=== PATIENT | male | born 1960 | race African-American/Black ===

== ENCOUNTER 2018-06-18 10:48 | Emergency (ER) | payer BC ==
[2018-06-18 10:55] VITALS: TEMP 98.1; BMI 32.1
[2018-06-18] MEDS ORDERED: VERAPAMIL HCL 80 MG TABLET PO ONE (11:30)
--- NOTE | 2018-06-18 11:45 | PDOC ---
History of Present Illness - General Chief Complaint: Blood Pressure Problem Stated Complaint: HIGH BLOOD PRESSURE Time Seen by Provider: 06/18/18 10:56 History Source: Patient Exam Limitations: No Limitations - History of Present Illness Initial Comments: 06/18/18 11:35 58-year-old male with history of hypertension secondary to renal artery stenosis managed by Dr. Almanzar and Dr. Larson presents now with several days of slightly elevated blood pressures and episode of this morning of lightheadedness with significantly elevated blood pressure. Patient's blood pressure regimen has not changed in over one year, missed his follow-up appointment that was scheduled for March. Over the last few days, patient has noted his blood pressures to be 180/100 despite medication compliance, his baseline is about 150/90. The patient self increased his verapamil dosing to 4 times a day from 3 times a day, but did not notice any significant change. When he awoke this morning his blood pressure was 140/90, but he subsequently had an episode of lightheadedness with shortness of breath that lasted about 25 minutes and was associated with a blood pressure of 220/110. He took his afternoon dose of quinapril early and presents for evaluation. His symptoms have completely resolved, he did not have any chest pain or pressure, he did not have any acute neurological symptoms. Presents here with feeling fine now. Denies any increased salt intake or leg swelling, denies any new or old exertional chest pain or dyspnea, had a normal stress test last year. Has been evaluated by vascular in the past for renal artery intervention, trial of medical optimization first. Past History - Past Medical History Allergies/Adverse Reactions: Allergies Allergy/AdvReac Type Severity Reaction Status Date / Time No Known Allergies Allergy Verified 06/18/18 10:49 Home Medications: Ambulatory Orders Quinapril HCl 40 mg PO DAILY 06/18/18 Quinapril HCl 40 mg PO ONCE 06/18/18 Triamterene/Hydrochlorothiazid [Triamterene-Hctz 37.5-25 mg Cp] 1 each PO DAILY 06/18/18 Verapamil HCl [Verapamil Sr] 120 mg PO TID 06/18/18 COPD: No Disorders: Yes (RENAL STENOSIS) HTN: Yes - Suicide/Smoking/Psychosocial Hx Smoking History: Never smoked Have you smoked in the past 12 months: No Information on smoking cessation initiated: No Hx Alcohol Use: (occasional) Review of Systems - Review of Systems Constitutional: No: Chills, Fever HEENTM: No: Blurred Vision Respiratory: Yes: Shortness of Breath. No: Cough Cardiac (ROS): Yes: Lightheadedness. No: Chest Pain, Edema, Syncope ABD/GI: No: Nausea, Vomiting Neurological: No: Headache, Paresthesia, Tingling, Weakness All Other Systems: Reviewed and Negative *Physical Exam - Vital Signs Last Vital Signs Temp Pulse Resp BP Pulse Ox 98.1 F 85 18 184/115 H 99 06/18/18 10:48 06/18/18 10:48 06/18/18 10:48 06/18/18 10:48 06/18/18 10:48 - Physical Exam Comments: 06/18/18 11:39 Pressure 184/115, vitals otherwise normal GENERAL: The patient is awake, alert, and fully oriented, in no acute distress speaking full sentences. HEAD: Normal with no signs of trauma. EYES: PERRL, EOMI, sclera anicteric, conjunctiva clear with no pallor. ENT: oropharynx clear without exudates. Moist mucous membranes. NECK: Normal range of motion, supple without lymphadenopathy, JVD, bruits, or masses. LUNGS: Breath sounds equal, clear to auscultation bilaterally. No wheeze/ crackles. HEART: Regular rate and rhythm, normal S1 and S2 without murmur or rub. ABDOMEN: Soft/nontender/nondistended. BS wnl. No guarding or rebound. No palpable masses. No hepatosplenomegaly. EXTREMITIES: Normal range of motion, no edema. 2+ distal pulses. No cords, erythema, or tenderness. NEURO: Mental status: The patient is alert and oriented x3. Cranial nerves: Cranial nerves II through XII are intact Motor: The upper extremities are 5 over 5 in all muscle groups. The lower extremities are 5 over 5 in all muscle groups. No pronator drift. Sensation: Sensation is intact to light touch throughout. Cerebellar: Gpfjnw-avdkvm-ofsd is normal in both upper extremities. Heel-knee- reed is normal in both lower extremities. Reflexes: 2+ and symmetric in the upper and lower extremities. Gait: Normal. Heel and toe walking are normal. Tandem gait is normal. PSYCH: Normal mood, normal affect. SKIN: Warm, Dry, no rashes or lesions noted. Moderate Sedation - Procedure Monitoring Vital Signs: Procedure Monitoring Vital Signs Temperature 98.1 F 06/18/18 10:48 Pulse Rate 85 06/18/18 10:48 Respiratory Rate 18 06/18/18 10:48 Blood Pressure 184/115 H 06/18/18 10:48 O2 Sat by Pulse Oximetry (%) 99 06/18/18 10:48 Heart Score/ECG Review #1 ECG reviewed & interpreted by me at: 11:41 General ECG Interpretation: Sinus Rhythm, Normal Rate (73), Normal Intervals ( qtc 434), No acute ischemic changes ED Treatment Course - LABORATORY CBC & Chemistry Diagram: 06/18/18 11:38 06/18/18 11:38 Medical Decision Making - Medical Decision Making 06/18/18 11:46 58-year-old male with history of hypertension secondary to renal artery stenosis with rising blood pressures recently now with episode of hypertensive urgency resolved, blood pressures at new baseline but improved from before. Normal exam without focal cardiopulmonary or neurological findings, currently asymptomatic. Check baseline labs including troponin given episode of lightheadedness EKG We'll give additional dose of short-acting verapamil No indication for emergent imaging Discuss disposition with PCP 06/18/18 12:42 labs normal, Cr 1.3 (baseline 1.4 in 2016). trop negative, ekg normal BP improved without additional medication here, 130/70 and now 158/92. remained asx during ED stay. likely stable for d/c, will discuss with greta/suzanne. 06/18/18 13:53 second calls to greta/suzanne. pt bp remains 130s/80s. Feels well, wants to go home. will continue taking verapamil qid as this was his previous regimen and seems to be better controlling his BP. understands return criteria, has f/u with his docs. *DC/Admit/Observation/Transfer Diagnosis at time of Disposition: Elevated blood pressure reading - Discharge Dispostion Disposition: HOME Condition at time of disposition: Improved - Referrals Referrals: Mercy Canas MD [Primary Care Provider] - Carlos Almanzar MD [Staff Physician] - - Patient Instructions Printed Discharge Instructions: DI for High Blood Pressure Additional Instructions: Activity as tolerated. Stay hydrated. Blood tests today showed no acute abnormalities. As discussed, the blood pressure improved while in the emergency department without additional medications. Continue your medications as previously prescribed by your physician, with the exception of continuing verapamil 4 times daily as you have been doing until you can follow up with your doctors. You should follow up with Dr. Larson and Dr. Almanzar as soon as possible regarding today's emergency department visit. Return to the emergency department for any new or concerning symptoms, particularly recurring episodes of lightheadedness or chest pain or difficulty breathing, focal weakness or numbness, vision changes, headache. - Post Discharge Activity
[2018-06-18 12:06] LABS: BASO % 1.3 % (0-2.0); EOS % 3.3 % (0-4.5); HEMATOCRIT 45.7 % (35.4-49); HEMOGLOBIN 14.6 GM/dl (11.7-16.9); LYMPH % 25.3 % (8-40); MEAN CELL VOLUME 84.5 fl (80-96); MEAN PLT VOLUME 8.6 fl (7.5-11.1); MONO % 9.8 % (3.8-10.2); NEUT % 60.3 % (42.8-82.8); PLATELET COUNT 217 K/MM3 (134-434); RBC 5.41 M/mm3 (4.00-5.60); WHITE BLOOD COUNT 6.2 K/mm3 (4.0-10.8)
[2018-06-18] MEDS ORDERED: VERAPAMIL HCL 5 MG/2 ML VIAL IVPUSH ONE ×2 (12:07→12:08)
[2018-06-18 12:17] LABS: ALBUMIN 4.3 g/dl (3.5-5.0); ALK PHOS 37 U/L (32-92); ANION GAP 8 MMOL/L (8-16); BILIRUBIN,TOTAL 0.6 mg/dl (0.2-1.0); BLOOD UREA NITROGEN 21 mg/dl (7-18); CALCIUM 9.8 mg/dl (8.4-10.2); CHLORIDE 98 mmol/L (98-107); CO2 28 mmol/L (22-28); CREATININE 1.3 mg/dl (0.6-1.3); GLUCOSE,RANDOM 163 mg/dl (74-106); POTASSIUM 3.6 mmol/L (3.5-5.1); SGOT/AST 20 U/L (10-42); SGPT/ALT 17 U/L (10-40); SODIUM 134 mmol/L (136-145); TOT PROT 6.8 g/dl (6.4-8.3)
[2018-06-18 14:07] VITALS: BP 152/79; PULSE 71
--- NOTE | 2018-06-18 15:32 | EKG ---
Test Reason : Blood Pressure : / mmHG Vent. Rate : 073 BPM Atrial Rate : 073 BPM P-R Int : 174 ms QRS Dur : 088 ms QT Int : 394 ms P-R-T Axes : 061 024 009 degrees QTc Int : 434 ms NORMAL SINUS RHYTHM NONSPECIFIC ST ABNORMALITY ABNORMAL ECG NO PREVIOUS ECGS AVAILABLE Confirmed by Juan Antonio Lentz ([id number]) on 06/18/2018 3:32:04 PM Referred By: SHIKHA DAVIS Confirmed By:Juan Antonio Lentz
== END 2018-06-18 14:12 | disposition home or self-care (01) ==
LOC: FER 10:48
DX: Z01.31 Encounter for examination of blood pressure with abnormal findings (principal)
CPT/HCPCS: 36415; 80053; 84484; 85025; 93005; 99284-25

== ENCOUNTER 2020-06-16 14:49 | Emergency (ER) | payer BC, OTHER | END 2020-06-16 16:36 | disposition home or self-care (01) | LOC: JVIRT 14:49 | DX: R53.83 Other fatigue (principal); Z20.828 Contact with and (suspected) exposure to other viral communicable diseases | CPT/HCPCS: C9803; G2012-GT; Q3014-GT; U0003 ==